=== PATIENT | male | born 1970 | race American Indian/Alaskan Native ===

== ENCOUNTER 2017-10-25 09:11 | Day surgery (SDC) | payer BC ==
[2017-10-25 10:59] VITALS: TEMP 98; BMI 25.0
[2017-10-25] MEDS ORDERED: Propofol 10 mg/ml Inj (20 ML) ONE ×2 (11:16→11:35)
[2017-10-25] MEDS ORDERED: ePHEDrine 50 mg/ml Inj ONE (11:19)
[2017-10-25 12:37] VITALS: BP 152/79; PULSE 70; RESP 17; O2SAT 99
== END 2017-10-25 13:05 | disposition home or self-care (01) ==
LOC: C.ENDO 09:11
PROVIDERS: ATTEND Internal Medicine Gastroenterology
DX: K29.50 Unspecified chronic gastritis without bleeding (principal); K29.80 Duodenitis without bleeding; B96.81 Helicobacter pylori [H. pylori] as the cause of diseases classified elsewhere; K64.1 Second degree hemorrhoids; D64.9 Anemia, unspecified; R63.4 Abnormal weight loss; Z87.19 Personal history of other diseases of the digestive system
CPT/HCPCS: 43239; 45378; 88305; J2001; J2704

== ENCOUNTER 2018-05-24 09:59 | Day surgery (SDC) | payer BC ==
[2018-05-23 10:56] VITALS: BMI 26.4
--- NOTE | 2018-05-24 10:36 | CP.SDSHP ---
Same Day Surgery H & P - History Proposed Procedure: colonoscopy Pre-Op Diagnosis: history of colon polyps - Previous Medical/Surgical History Cardiac: Hypertension - Allergies Allergies: Allergies No Known Allergies Allergy (Verified 05/23/18 10:43) . - Physical Exam General Appearance: NAD Vital Signs: Vital Signs 05/24/18 10:14 Temperature 97.5 F L Pulse Rate 66 Respiratory 18 Rate Blood Pressure 151/88 H O2 Sat by Pulse 100 Oximetry Mental Status: Alert & Oriented x3 Neuro: WNL Heart: WNL Lungs: WNL GI: WNL - {Optional Preform as Required} Abdomen: WNL - Impression Pt. Evaluated Today:Candidate for Anesthesia & Procedure: Yes - Date & Time Date: 05/24/18 Time: 10:36 Short Stay Discharge - Short Stay Discharge Admitting Diagnosis/Reason for Visit: H/O COLON POLYPS Disposition: HOME/ ROUTINE Referrals: Dejuan Church [Primary Care Provider] -
[2018-05-24] MEDS ORDERED: Propofol 10 mg/ml Inj (20 ML) ONE ×2 (10:39→10:46)
[2018-05-24 11:11] VITALS: TEMP 98
[2018-05-24 11:51] VITALS: BP 145/87; PULSE 71; RESP 14; O2SAT 98
== END 2018-05-24 11:53 | disposition home or self-care (01) ==
LOC: C.ENDO 09:59
PROVIDERS: ATTEND Internal Medicine Gastroenterology
DX: Z12.11 Encounter for screening for malignant neoplasm of colon (principal); Z86.010 Personal history of colon polyps; K64.4 Residual hemorrhoidal skin tags
CPT/HCPCS: 45378; J2704